=== PATIENT | male | born 1935 | race Hispanic/Latino ===

== ENCOUNTER 2017-08-16 06:39 | Day surgery (SDC) | payer MEDICARE ==
[2017-08-16] MEDS ORDERED: ECOTRIN PO ONE (08:00)
[2017-08-16 08:19] LABS: Anion Gap 17 mmol/L; BUN/Creatinine Ratio 20; Blood Urea Nitrogen 20 mg/dL (9-20); Calcium 9.8 mg/dL (8.4-10.2); Carbon Dioxide 27 mmol/L (22-30); Chloride 103.5 mmol/L (98-107); Glucose 165 mg/dL (75-100); Potassium 4.4 mmol/L (3.6-5.0); Sodium 143 mmol/L (137-145)
[2017-08-16 08:21] LABS: INR 0.93 (0.87-1.13)
[2017-08-16 08:48] LABS: Basophils % (Auto) 0.6 % (0.0-1.8); Eosinophils % (Auto) 2.6 % (0.0-4.3); Hematocrit 41.8 % (35.5-45.6); Mean Corpuscular HGB Conc 34 % (32-34); Mean Corpuscular Hemoglobin 30 pg (28-32); Mean Corpuscular Volume 89 fl (84-94); Platelet Count 211 K/mm3 (140-440); Red Blood Count 4.67 M/mm3 (3.65-5.03); Red Cell Distribution Width 14.5 % (13.2-15.2); White Blood Count 7.1 K/mm3 (4.5-11.0)
[2017-08-16] MEDS ORDERED: NACL 0.9% 500 ML 500 ML IV SCH (09:00)
[2017-08-16] MEDS ORDERED: HEPARIN 10,000 UNITS/10 ML ONE (09:47)
[2017-08-16] MEDS: VERSED ONE ×2 (10:01→10:08)
[2017-08-16] MEDS: SUBLIMAZE ONE ×2 (10:01→10:08)
[2017-08-16] MEDS: XYLOCAINE 2% INFILTRATI ONE ×2 (10:01→10:08)
[2017-08-16] MEDS: NITROGLYCERIN SYRINGE 3 ML ONE ×3 (10:02→10:10)
[2017-08-16] MEDS: CALAN ONE ×3 (10:02→10:10)
[2017-08-16] MEDS: HEPARIN/NS 5000 UNIT/500ML(CATH LAB) 1,000 ML IR ONE ×2 (10:02→10:05)
--- NOTE | 2017-08-16 11:39 | Cardiac Catherization Report ---
CARDIAC CATHETERIZATION REFERRING PHYSICIAN: Duke Ely MD INDICATION FOR PROCEDURE: The patient is a pleasant 81-year-old with progressive aortic stenosis in the moderate range with symptoms of shortness of breath, lightheadedness, referred for left heart catheterization. Risks, benefits, and potential alternatives explained at length prior to obtaining informed consent. PROCEDURE IN DETAIL: The patient was brought to the catheterization lab in a postabsorptive state, prepped and draped in sterile fashion. Navdeep's test in right hand was normal. A 2 mL of 2% lidocaine used to anesthetize the right wrist. A standard 6-Malagasy hydrophilic sheath used to cannulate the right radial artery via modified Seldinger technique. All exchanges were performed to exchange a J-tip guidewire. JL3.5 catheter used to engage the left main. No dampening or ventricularization. Cineangiography performed in all projections. JR4 catheter used to cross the aortic valve under fluoroscopic guidance. Left ventriculography performed in 30 BARNES and 30 BURMESE projections via hand injections, catheter flushed. Manual pullback performed with continuous pressure monitoring. Catheter used to engage the right coronary. No dampening or ventricularization. DATA: Aortic pressure is 190. EDP of 12-15. LV pressure is 165-169/80. Left ventriculography revealed normal systolic performance with estimated ejection fraction of 55-60%. 1+ MR. CORONARY ANATOMY: This is a strong left dominant system. Left main is a moderate sized vessel, no significant disease. Left circumflex is a large vessel, courses AV groove, gives off left PDA and OM trunk. There is a 99% ostial/proximal left circumflex stenosis, EWA 3 flow. LAD is a moderate sized vessel, courses anterior intergroove, wraps around the apex. There is a 90% ostial/proximal LAD stenosis identified. The right coronary is a small nondominant vessel with a 80-90% stenosis in the mid segment. It should be noted that the entire proximal left system is heavily calcified in the milieu of this complex disease. CONCLUSIONS: 1. 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 2. Preserved left ventricular systolic performance. 3. [id number] aortic stenosis with [id number] gradient of only 20 mmHg. At this point, given his anatomy and symptom complex, I believe he will benefit from complete revascularization. Results of procedure explained in length to the patient and family. All questions and concerns were discussed. The patient will be transferred to [facility] in stable fashion. Discussed with Dr. Cj Mireles. He is clinically and hemodynamically stable. JOB# [id number] SBM/NTS
[2017-08-16 13:43] VITALS: BP 155/87
--- NOTE | 2017-08-17 14:40 | Short Stay Summary ---
Short Stay Documentation Date of service: 08/16/17 - History H&P: obtained from office - Allergies and Medications Current Medications: Allergies No Known Allergies Allergy (Verified 08/16/17 07:10) Home Medications Medication Instructions Recorded Confirmed Last Taken Type Finasteride [Finasteride] 5 mg PO DAILY 08/16/17 08/16/17 08/15/17 History Lisinopril [Lisinopril] 20 mg PO DAILY 08/16/17 08/16/17 08/15/17 History Metformin HCl [Metformin] 1,000 mg PO BID 08/16/17 08/16/17 08/15/17 History Sitagliptin Phosphate [Januvia] 100 mg PO DAILY 08/16/17 08/16/17 08/15/17 History - Brief post op/procedure progress note Date of procedure: 08/16/17 Pre-op diagnosis: Post-op diagnosis: other (CAD & ) Procedure: [facility] - see cath report Anesthesia: local Findings: see cath report - tx to [facility] for possible CABG Estimated blood loss: none Condition: stable - Disposition Condition at discharge: Fair Disposition: [id number] ANOTHER TYPE HLTHCARE - Discharge Diagnoses (1) CAD (coronary artery disease) Status: Chronic Qualifiers: Coronary Disease-Associated Artery/Lesion type: C [place] vs. transplanted heart: N Associated angina: A (2) Aortic stenosis Status: Chronic Qualifiers: Cardiac valve disease etiology: C (3) HTN (hypertension) Status: Chronic Qualifiers: Hypertension type: H (4) Autonomic dysfunction Status: Chronic (5) RBBB Status: Chronic Short Stay Discharge Plan Activity: advance as tolerated Diet: low fat, low cholesterol, low salt Wound: open to air, keep clean and dry, per your surgeon's advice Follow up with: SPENCER MORALES MD [Staff Physician] - 7 Days
== END 2017-08-16 15:49 | disposition other institution (70) ==
LOC: CATHLABREC 06:39
PROVIDERS: ATTEND Internal Medicine
DX: I25.10 Atherosclerotic heart disease of native coronary artery without angina pectoris (principal); I35.0 Nonrheumatic aortic (valve) stenosis; I10 Essential (primary) hypertension; Z79.01 Long term (current) use of anticoagulants
CPT/HCPCS: 36415; 80048; 82962; 85025; 85610; 85730; 93005; 93010; 93458; 99152; C1894; J1644; J2250; J3010; J7040; Q9967